=== PATIENT | male | born 1965 | race Caucasian/White ===

== ENCOUNTER 2023-02-25 09:40 | Day surgery (SDC) | payer BC ==
[~2023-02-25] VITALS: Ht 175.3 cm; Wt 77.2 kg
[2023-02-25 09:26] VITALS: BP 107/74
[~2023-02-25 09:40] MED LIST: Apriso0.375 GM PO
--- NOTE | 2023-02-25 09:59 | NUR ---
02/25/23 0959 DANETTE HAGEN REVISED ORDER PER DR DONOVAN ADDED PCP
== END 2023-02-25 09:41 | disposition home or self-care (01) ==
LOC: ORSCSDS 09:40
PROVIDERS: Internal Medicine Gastroenterology
PROC: 0DBG8ZX Excision of Left Large Intestine, Via Natural or Artificial Opening Endoscopic, Diagnostic (ICD-10-PCS; principal; 2023-02-25 09:00)
PROC: 0DBF8ZX Excision of Right Large Intestine, Via Natural or Artificial Opening Endoscopic, Diagnostic (ICD-10-PCS; principal; 2023-02-25 09:00)
PROC: 0DBP8ZX Excision of Rectum, Via Natural or Artificial Opening Endoscopic, Diagnostic (ICD-10-PCS; principal; 2023-02-25 09:00)
DX: Z12.11 Encounter for screening for malignant neoplasm of colon (principal); K52.9 Noninfective gastroenteritis and colitis, unspecified; Z87.19 Personal history of other diseases of the digestive system; K62.1 Rectal polyp; K62.89 Other specified diseases of anus and rectum; Z79.899 Other long term (current) drug therapy
CPT/HCPCS: 88305; J2704; J7120